=== PATIENT | male | born 1995 | race Hispanic/Latino ===

== ENCOUNTER 2018-02-16 12:38 | Emergency (ER) | payer MEDICAID, SELFPAY ==
[2018-02-16] MEDS ORDERED: Ibuprofen 800 MG TAB ONE (13:53)
[2018-02-16] MEDS ORDERED: Ondansetron ODT 4 MG TAB ONE (13:53)
[2018-02-16] MEDS ORDERED: Lidocaine 1% w/Epinephrine 1:100K 20 ML VIAL ONE (14:02)
== END 2018-02-16 16:00 | disposition home or self-care (01) ==
LOC: SCSER 12:38
DX: L02.31 Cutaneous abscess of buttock (principal); F17.210 Nicotine dependence, cigarettes, uncomplicated
CPT/HCPCS: 10061; J2001; Q0162